=== PATIENT | male | born 1945 | race Caucasian/White ===

== ENCOUNTER → 2016-08-19 | Outpatient (CLI) | payer MEDICARE ==
[~2016-08-19] MED LIST: LEVAQUIN 250 M250 MG PO; PROSCAR5 MG PO; TYLENOL WITH C1 EACH PO
== END | disposition disaster alternative care site (69) ==
LOC: GRAD 10:11
DX: R31.0 Gross hematuria (principal); N40.0 Benign prostatic hyperplasia without lower urinary tract symptoms; N32.3 Diverticulum of bladder
CPT/HCPCS: Q9967

== ENCOUNTER 2016-09-24 10:48 | Day surgery (SDC) | payer MEDICARE ==
[~2016-09-24] VITALS: Ht 180.3 cm; Wt 91.8 kg
--- NOTE | ~2016-09-24 | OR ---
PATIENT'S NAME: CARLOTA ROCK [facility] AGE: 71 Y [address] ROOM: [place] [address] [place] [facility] [place]: 09/24/2016 OR/Procedure Report DISCHARGE DATE: FAMILY PHYSICIAN: PHYSICIAN, NO ATTENDING PHYSICIAN: Carina Gill SURGEON: Carina Gill MD CRABBING MACHINE OPERATOR: DATE OF PROCEDURE: 09/24/2016 PREOPERATIVE DIAGNOSES: 1. Benign prostatic hypertrophy with lower urinary tract symptoms. 2. Gross hematuria. POSTOPERATIVE DIAGNOSES: 1. Benign prostatic hypertrophy with lower urinary tract symptoms. 2. Gross hematuria. PROCEDURE PERFORMED: Cystoscopy, transurethral resection of the prostate. ANESTHESIA: Spinal. COMPLICATIONS: None. ESTIMATED BLOOD LOSS: 50 mL. INDICATIONS FOR PROCEDURE: The patient is a 71-year-old male, who has experienced two episodes of gross hematuria and also obstructive voiding symptoms. Office cystoscopy was performed, which revealed regrowth of prostate tissue from his previous TURP. DETAILS OF PROCEDURE: After informed consent was obtained, the patient was taken to the operating room. A spinal anesthetic was applied. He was placed in the dorsal lithotomy position. Groin area was prepped and draped in normal sterile fashion. Resectoscope sheath was introduced into the urethra and bladder followed by the resectoscope. The patient has a very large median lobe which extends into the bladder. Also the patient's left lateral lobe extended deep into the bladder. Resection was begun at the large median lobe, was resected down to crossing fibers. I then resected the lateral lobes. I resected as much of the lateral lobes extending into the bladder as I could reach with the resectoscope. I then resected the right lateral lobe. Chips were irrigated out. Bleeding areas were fulgurated. I then continued resecting the lateral lobes down to the level of the verumontanum. Further chips were irrigated out and then bleeders were fulgurated. At the end of the procedure, the patient had an excellent voiding channel. The resectoscope was then removed, and a 24-Bengali 3-way Elizabeth catheter was placed on traction. PATIENT'S NAME: CARLOTA ROCK [facility] AGE: 71 Y [address] ROOM: [place] [address] [place] [facility] [place]: 09/24/2016 OR/Procedure Report DISCHARGE DATE: FAMILY PHYSICIAN: PHYSICIAN, MICHI ATTENDING PHYSICIAN: Carina Gill The patient tolerated his procedure well and was transferred to the recovery room in good condition. MD DIANELYS OSBORN/luke /[id number] d: 09/24/164 t: 10/02/16 1237, OPERATIVE SUMMARY
[2016-09-24 11:35] LABS: BASOPHIL % 0.5 %; EOSINOPHIL # 0.1 K/uL (0.0-0.5); EOSINOPHIL % 1.1 %; HEMATOCRIT 45.7 % (37.0-53.0); HEMOGLOBIN 15.3 g/dL (11.0-16.0); IMMATURE GRANULOCYTE % 0.3 %; LYMPHOCYTE # 1.7 K/uL (0.8-4.0); LYMPHOCYTE % 26.5 %; MCH 29.1 pg (27.0-34.0); MCHC 33.5 gm/dL (32.0-36.5); MONOCYTE # 0.8 K/uL (0.0-1.0); MONOCYTE % 12.2 %; MPV 9.3 fl (9.4-12.4); NEUTROPHIL # (ANC) 3.7 K/uL (1.4-9.0); NEUTROPHIL % 59.4 %; NRBC % 0 /100WBC (0-0.00); PLATELET COUNT 224 K/uL (150-450); RBC 5.25 M/uL (3.50-5.50); RDW-CV 13.1 % (11.9-14.6); WBC 6.3 K/uL (4.0-11.0)
[2016-09-24 11:51] LABS: ALBUMIN 3.7 gm/dL (3.5-5.0); ALK PHOS 89 IU/L (33-138); ALT 25 IU/L (12-78); AST 21 IU/L (10-40); BLOOD UREA NITROGEN 18 mg/dL (6-24); CALCIUM 8.8 mg/dL (8.5-10.5); CHLORIDE 109 mMol/L (96-110); CO2 26 mMol/L (22-32); CREATININE 1.1 mg/dL (0.6-1.3); ESTIMATED GFR (MDRD EQUATION) > 60; SODIUM 143 mMol/L (135-145); TOTAL BILIRUBIN 0.6 mg/dL (0.0-1.5); TOTAL PROTEIN 7.3 g/dL (6.0-8.4)
--- NOTE | 2016-09-24 16:32 | NUR ---
CBI: PATIENT'S UOP TOTAL IN PACU 2700 ML. 2100 ML NACL IRRIGATION INFUSED PER CBI. BAG #1 UP.
--- NOTE | 2016-09-24 16:42 | NUR ---
Significant Event: Pt to floor at 1630 from PACU after a TURP. Denies pain. CBI running slow, urine clear. a/o x3. bedrest. May have clear liquids ADAT. VS stable. Follow up:
[2016-09-25 05:07] LABS: BASOPHIL % 0.2 %; EOSINOPHIL % 0.4 %; HEMATOCRIT 42.5 % (37.0-53.0); HEMOGLOBIN 13.8 g/dL (11.0-16.0); IMMATURE GRANULOCYTE # 0.1 K/uL (0.0-0.3); IMMATURE GRANULOCYTE % 0.6 %; LYMPHOCYTE % 11.5 %; MCH 28.7 pg (27.0-34.0); MCHC 32.5 gm/dL (32.0-36.5); MCV 88.4 fl (83.0-98.0); MONOCYTE # 1.2 K/uL (0.0-1.0); MONOCYTE % 12.9 %; MPV 9.5 fl (9.4-12.4); NEUTROPHIL # (ANC) 6.6 K/uL (1.4-9.0); NEUTROPHIL % 74.4 %; NRBC % 0 /100WBC (0-0.00); PLATELET COUNT 207 K/uL (150-450); RBC 4.81 M/uL (3.50-5.50); RDW-CV 13.1 % (11.9-14.6); WBC 8.9 K/uL (4.0-11.0)
--- NOTE | 2016-09-25 05:09 | NUR ---
Significant Event: PATIENT IS ALERT AND ORIENTATED. ON BED REST. CBI RUNNING SLOWLY LIGHT SALMON COLOR DRAINAGE TO BUTLER. NO COMPLAINTS OF PAIN OR DISCOMFORT. VSS ON RA. GROIN IS EXCORIATED BILATERALLY. Follow up:
[2016-09-25 05:25] LABS: BLOOD UREA NITROGEN 12 mg/dL (6-24); CALCIUM 8.5 mg/dL (8.5-10.5); CHLORIDE 107 mMol/L (96-110); CO2 29 mMol/L (22-32); CREATININE 1.1 mg/dL (0.6-1.3); ESTIMATED GFR (MDRD EQUATION) > 60; PHOSPHORUS 2.7 mg/dL (2.5-4.9); SODIUM 142 mMol/L (135-145)
[2016-09-25] MEDS ORDERED: LEVAQUIN 250 M250 MG PO (14:40)
[2016-09-25] MEDS ORDERED: TYLENOL WITH C1 EACH PO (14:43)
[2016-09-25] MEDS ORDERED: PROSCAR5 MG PO (14:43)
--- NOTE | 2016-09-25 16:38 | NUR ---
Educated on medications, followup appointments, blood clot prevention, catheter cares, leg beg teaching, postop TURP instructions. Vital signs taken. IV discontinued. Patient taken by wheelchair with all personal belongings to main lobby for transport home with .
== END 2016-09-25 16:10 | disposition disaster alternative care site (69) ==
LOC: GMSU 10:48 → GSDC 10:48 → UNDOADMIN 10:48 → GMSU 10:48 → EDSTATUS 13:00 → GMSU 18:21 → GSDC 09-25 16:10 → GMSU 09-25 16:10
PROVIDERS: Urology
PROC: 0VT08ZZ Resection of Prostate, Via Natural or Artificial Opening Endoscopic (ICD-10-PCS; principal; 2016-09-24)
DX: N40.1 Benign prostatic hyperplasia with lower urinary tract symptoms (principal); N13.8 Other obstructive and reflux uropathy; R31.0 Gross hematuria; Z88.2 Allergy status to sulfonamides; Z90.49 Acquired absence of other specified parts of digestive tract
CPT/HCPCS: J1956; J2550; J7120

== ENCOUNTER 2016-09-30 20:54 | Emergency (ER) | payer MEDICARE ==
--- NOTE | ~2016-09-30 | ER ---
PATIENT'S NAME: CARLOTA ROCK [facility] AGE: 71 Y [address] ROOM: [place] [address] LOCATION: [facility] ADMIT DATE: 09/30/2016 ER/Outpatient Report DISCHARGE DATE: 09/30/2016 FAMILY PHYSICIAN: PHYSICIAN, NO ATTENDING PHYSICIAN: Naye Cowart Time of Arrival: 4 hours. Time of Evaluation: 0 hours. CHIEF COMPLAINT: Back spasms, recent prostate surgery. HISTORY OF PRESENT ILLNESS: This is a 71-year-old male, who presents to the ER. He states he had a recent prostate procedure done by Dr. Gill on Tuesday. The patient states he has been doing well since that procedure until last night he started having some mid back spasms. He states that he has been running a low-grade fever at home. He has had no diarrhea. No chest pain. No cough. No shortness of breath. He states that he does not see any big clots of blood in his urination. No troubles with bowel movements. He states that he just finished an antibiotic levofloxacin this morning. He denies any other problems at this time. ALLERGIES: POSSIBLE ALLERGY TO SULFA, NO KNOWN REACTION TO THIS MEDICINE MEDICATIONS: None. PAST MEDICAL HISTORY: He has prostate scraped on Tuesday. SOCIAL HISTORY: Denies smoking, drug, or alcohol use. REVIEW OF SYSTEMS: A 10-point review of systems was completed and was negative with the exception of those discussed in the HPI. PHYSICAL EXAMINATION: VITAL SIGNS: Height 5 feet 11 inches stated, weight 90 kg taken, blood pressure is 186/86, pulse 84, respirations 22, temperature 100.8 degrees tympanically, saturations 96% on room air. Nadine Coma Score is 15. GENERAL: An alert, calm, well-developed male, in [id number] distress. PATIENT'S NAME: CARLOTA ROCK [facility] AGE: 71 Y [address] ROOM: [place] [address] LOCATION: [facility] ADMIT DATE: 09/30/2016 ER/Outpatient Report DISCHARGE DATE: 09/30/2016 FAMILY PHYSICIAN: PHYSICIAN, NO ATTENDING PHYSICIAN: Naye Cowart HEENT: Head: Normocephalic. He does display moist mucous membranes. LUNGS: Clear to auscultation bilaterally. No wheezes or crackles. HEART: Regular rate and rhythm. ABDOMEN: Soft and is nontender. He has good bowel sounds throughout. MUSCULOSKELETAL: He does have muscular back spasms noted to the mid back. He has no tenderness over the bony aspects of his cervical, thoracic, or lumbar spine. He has no CVA tenderness. EXTREMITIES: No clubbing, cyanosis, or edema. Full range of motion of all limbs. LABORATORY DATA AND X-RAYS: CBC: White count is 11.8, hemoglobin 15.5, platelets 235, ANC is 9.1. Urinalysis: Leukocytes 100, nitrites negative. UA micro: White blood cells 10-20, red blood cells full field, epithelial 2-5, bacteria is moderate. IMPRESSION: 1. Mid back muscular spasms. 2. Urinary tract infection. ASSESSMENT AND PLAN: I did discuss the patient's care with Dr. Cowart. We did give the patient 5 mg Valium tablet and 1 Buhl here in the emergency room. He did tolerate this well. We also gave him Rocephin 1 g IM as well. The patient tolerated this all well. We will send him home with Bactrim to use as directed. We sent his urine off for culture as well. He needs to monitor his symptoms. I would like him to follow up with his primary care physician in the next 1-2 days. I did send him with business cards for [facility] as well as Urology. The patient understands and agrees with care. KIARA AGUILAR PA-C FOR MD IVELISSE GARCIA/luke /[id number] d: 10/01/161 t: 10/04/16 0026, OUTPATIENT REPORT
[2016-09-30 21:48] LABS: BASOPHIL % 0.3 %; EOSINOPHIL # 0.1 K/uL (0.0-0.5); EOSINOPHIL % 0.6 %; HEMATOCRIT 46.2 % (37.0-53.0); HEMOGLOBIN 15.5 g/dL (11.0-16.0); IMMATURE GRANULOCYTE # 0.1 K/uL (0.0-0.3); IMMATURE GRANULOCYTE % 0.5 %; LYMPHOCYTE # 1.1 K/uL (0.8-4.0); LYMPHOCYTE % 9.4 %; MCH 29.1 pg (27.0-34.0); MCHC 33.5 gm/dL (32.0-36.5); MCV 86.8 fl (83.0-98.0); MONOCYTE # 1.5 K/uL (0.0-1.0); MONOCYTE % 12.6 %; NEUTROPHIL # (ANC) 9.1 K/uL (1.4-9.0); NEUTROPHIL % 76.6 %; NRBC % 0 /100WBC (0-0.00); PLATELET COUNT 235 K/uL (150-450); RBC 5.32 M/uL (3.50-5.50); RDW-CV 12.8 % (11.9-14.6); WBC 11.8 K/uL (4.0-11.0)
[2016-09-30 21:54] LABS: BILIRUBIN URINE NEGATIVE (NEGATIVE); BLOOD URINE 250 /UL (NEGATIVE); COLOR URINE YELLOW (YELLOW); GLUCOSE URINE NEGATIVE (NEGATIVE); KETONE URINE 50 mg/dL (NEGATIVE); LEUKOCYTES URINE 100 /UL (NEGATIVE); NITRITE URINE NEGATIVE (NEGATIVE); PROTEIN URINE 100 mg/dL (NEGATIVE); SPEC GRAVITY URINE 1.025 (1.003-1.035); TURBIDITY URINE 2+ (CLEAR); UROBILINOGEN URINE 1 mg/dL (NORMAL)
[2016-09-30 22:09] LABS: BACTERIA URINE MODERATE (NEGATIVE); MUCUS URINE 3+ (NEGATIVE); RBC URINE FULL FIELD #/HPF (NEGATIVE)
== END 2016-09-30 22:42 | disposition disaster alternative care site (69) ==
LOC: GMED 20:54
PROVIDERS: Physician Assistant Medical
DX: N39.0 Urinary tract infection, site not specified (principal); M62.830 Muscle spasm of back; Z88.2 Allergy status to sulfonamides
CPT/HCPCS: J0696